=== PATIENT | male | born 1985 | race Caucasian/White ===

== ENCOUNTER 2018-03-19 03:30 | Observation (INO) | payer BC ==
[2018-03-19] MEDS ORDERED: SODIUM CHLORIDE 0.9% 1,000 ML IV STA (03:34)
[2018-03-19] MEDS ORDERED: ASPIRIN 81 MG PO STA (03:34)
[2018-03-19] MEDS ORDERED: NITROGLYCERIN OINT 1 INCH/GM PACKET TOPICAL STA (03:34)
--- NOTE | 2018-03-19 03:37 | ED ---
General Adult HPI - General Stated complaint: Chest Pain Time Seen by Provider: 03/19/18 03:31 Source: patient, RN notes reviewed Limitations: no limitations - History of Present Illness Initial comments: Patient is a pleasant 33-year-old male presenting to the emergency department with complaints of chest discomfort. Onset was around 4 hours ago. Discomfort has mostly resolved at this point. Patient has a difficult time describing the type of discomfort he experienced. Discomfort was left chest and extended to the left arm. Patient did have associated dyspnea. Patient was sweaty. Patient was somewhat upset at onset. Patient has had several similar symptoms over the past few weeks. Patient has seen lining printer and is playing to have a stress test scheduled. Patient does admit to drinking some alcohol earlier tonight. - Related Data Previous Rx's Medication Instructions Recorded Hydrocodone/Acetaminophen [[place] 1 each PO Q6HR PRN #20 tab 07/29/16 5-325] Ondansetron Odt [Zofran ODT] 4 mg PO Q8HR PRN #10 tab 07/29/16 Tamsulosin [Flomax] 0.4 mg PO DAILY #14 cap 07/29/16 Allergies Allergy/AdvReac Type Severity Reaction Status Date / Time amoxicillin Allergy Unknown Verified 03/19/18 03:39 Review of Systems ROS Statement: Those systems with pertinent positive or pertinent negative responses have been documented in the HPI. ROS Other: All systems not noted in ROS Statement are negative. Constitutional: Denies: fever Eyes: Denies: eye pain ENT: Denies: ear pain Respiratory: Reports: dyspnea. Denies: cough Cardiovascular: Reports: chest pain Endocrine: Denies: heat or cold intolerance Gastrointestinal: Denies: abdominal pain, nausea Genitourinary: Denies: dysuria Musculoskeletal: Denies: back pain Skin: Denies: rash Neurological: Denies: weakness Past Medical History Past Medical History: No Reported History History of Any Multi-Drug Resistant Organisms: None Reported Past Surgical History: No Surgical Hx Reported Past Psychological History: No Psychological Hx Reported Smoking Status: Never smoker Past Alcohol Use History: None Reported Past Drug Use History: None Reported General Exam Limitations: no limitations General appearance: alert, in no apparent distress Head exam: Present: atraumatic Eye exam: Present: normal appearance, PERRL ENT exam: Present: normal oropharynx Neck exam: Present: normal inspection Respiratory exam: Present: normal lung sounds bilaterally. Absent: chest wall tenderness Cardiovascular Exam: Present: regular rate, normal rhythm Expanded Peripheral pulses: 2+: Radial (R), Radial (L), Posterior Tibialis (R), Posterior Tibialis (L) GI/Abdominal exam: Present: soft. Absent: tenderness Extremities exam: Present: normal inspection. Absent: pedal edema, calf tenderness Neurological exam: Present: alert Psychiatric exam: Present: normal affect, normal mood Skin exam: Present: normal color Course Vital Signs 03/19/18 03:35 Temperature 98.2 F Pulse Rate 78 Respiratory 16 Rate Blood Pressure 121/59 O2 Sat by Pulse 98 Oximetry EKG Findings - EKG Comments: EKG Findings:: Normal sinus rhythm 77. DC 156. QRS 82. QT 360. QTC 47. Normal axis. Normal QRS. No acute ST change. Medical Decision Making - Medical Decision Making Patient reevaluated and resting comfortably in bed. No discomfort at this time. Patient family updated on results and plan. Case was discussed with practitioner Delgado, covering for Dr. Diggs, who will admit for hospital call. - Lab Data Result diagrams: 03/19/18 03:34 03/19/18 03:34 Lab Results 03/19/18 03/19/18 03/19/18 Range/Units 03:34 03:34 03:34 WBC 11.9 H (3.8-10.6) k/uL RBC 4.72 (4.30-5.90) m/uL Hgb 14.6 (13.0-17.5) gm/dL Hct 42.9 (39.0-53.0) % MCV 90.8 (80.0-100.0) fL MCH 30.9 (25.0-35.0) pg MCHC 34.0 (31.0-37.0) g/dL RDW 12.3 (11.5-15.5) % Plt Count 219 (150-450) k/uL Neutrophils % 84 % Lymphocytes % 10 % Monocytes % 4 % Eosinophils % 1 % Basophils % 0 % Neutrophils # 10.0 H (1.3-7.7) k/uL Lymphocytes # 1.2 (1.0-4.8) k/uL Monocytes # 0.5 (0-1.0) k/uL Eosinophils # 0.1 (0-0.7) k/uL Basophils # 0.0 (0-0.2) k/uL PT (9.0-12.0) sec INR (<1.2) APTT (22.0-30.0) sec D-Dimer (<0.60) mg/L FEU Sodium 146 H (137-145) mmol/L Potassium 4.1 (3.5-5.1) mmol/L Chloride 108 H (98-107) mmol/L Carbon Dioxide 21 L (22-30) mmol/L Anion Gap 17 mmol/L BUN 12 (9-20) mg/dL Creatinine 0.70 (0.66-1.25) mg/dL Est GFR (CKD-EPI)AfAm >90 (>60 ml/min/1.73 sqM) Est GFR (CKD-EPI)NonAf >90 (>60 ml/min/1.73 sqM) Glucose 107 H (74-99) mg/dL Calcium 8.9 (8.4-10.2) mg/dL Magnesium 2.0 (1.6-2.3) mg/dL Total Bilirubin 0.8 (0.2-1.3) mg/dL AST 23 (17-59) U/L ALT 37 (21-72) U/L Alkaline Phosphatase 73 (38-126) U/L Total Creatine Kinase 65 (55-170) U/L CK-MB (CK-2) 0.2 (0.0-2.4) ng/mL CK-MB (CK-2) Rel Index 0.3 Troponin I <0.012 (0.000-0.034) ng/mL Total Protein 6.4 (6.3-8.2) g/dL Albumin 4.3 (3.5-5.0) g/dL 03/19/18 Range/Units 03:34 WBC (3.8-10.6) k/uL RBC (4.30-5.90) m/uL Hgb (13.0-17.5) gm/dL Hct (39.0-53.0) % MCV (80.0-100.0) fL MCH (25.0-35.0) pg MCHC (31.0-37.0) g/dL RDW (11.5-15.5) % Plt Count (150-450) k/uL Neutrophils % % Lymphocytes % % Monocytes % % Eosinophils % % Basophils % % Neutrophils # (1.3-7.7) k/uL Lymphocytes # (1.0-4.8) k/uL Monocytes # (0-1.0) k/uL Eosinophils # (0-0.7) k/uL Basophils # (0-0.2) k/uL PT 11.0 (9.0-12.0) sec INR 1.1 (<1.2) APTT 26.2 (22.0-30.0) sec D-Dimer <0.17 (<0.60) mg/L FEU Sodium (137-145) mmol/L Potassium (3.5-5.1) mmol/L Chloride (98-107) mmol/L Carbon Dioxide (22-30) mmol/L Anion Gap mmol/L BUN (9-20) mg/dL Creatinine (0.66-1.25) mg/dL Est GFR (CKD-EPI)AfAm (>60 ml/min/1.73 sqM) Est GFR (CKD-EPI)NonAf (>60 ml/min/1.73 sqM) Glucose (74-99) mg/dL Calcium (8.4-10.2) mg/dL Magnesium (1.6-2.3) mg/dL Total Bilirubin (0.2-1.3) mg/dL AST (17-59) U/L ALT (21-72) U/L Alkaline Phosphatase (38-126) U/L Total Creatine Kinase (55-170) U/L CK-MB (CK-2) (0.0-2.4) ng/mL CK-MB (CK-2) Rel Index Troponin I (0.000-0.034) ng/mL Total Protein (6.3-8.2) g/dL Albumin (3.5-5.0) g/dL - Radiology Data Radiology results: image reviewed (Chest x-ray shows no acute process) Disposition Clinical Impression: Chest pain Disposition: ADMITTED IP TO THIS [facility] Is patient prescribed a controlled substance at d/c from ED?: No Referrals: None,Stated [Primary Care Provider] - 1-2 days Decision Time: 05:17
[2018-03-19 03:47] LABS: Basophils % (A) 0 %; Eosinophils # (A) 0.1 k/uL (0-0.7); Eosinophils % (A) 1 %; HCT 42.9 % (39.0-53.0); HGB 14.6 gm/dL (13.0-17.5); Lymphocytes # (A) 1.2 k/uL (1.0-4.8); Lymphocytes % (A) 10 %; MCH 30.9 pg (25.0-35.0); MCV 90.8 fL (80.0-100.0); Mean Platelet Volume 7.6; Monocytes # (A) 0.5 k/uL (0-1.0); Monocytes % (A) 4 %; Neutrophils % (A) 84 %; Platelet Count 219 k/uL (150-450); RBC 4.72 m/uL (4.30-5.90); RDW 12.3 % (11.5-15.5); WBC 11.9 k/uL (3.8-10.6)
[2018-03-19 04:08] LABS: ALT 37 U/L (21-72); AST 23 U/L (17-59); Albumin 4.3 g/dL (3.5-5.0); Alkaline Phosphatase 73 U/L (38-126); Anion Gap 17 mmol/L; Blood Urea Nitrogen 12 mg/dL (9-20); Calcium 8.9 mg/dL (8.4-10.2); Carbon Dioxide 21 mmol/L (22-30); Chloride 108 mmol/L (98-107); D-Dimer <0.17 mg/L FEU (<0.60); Glucose 107 mg/dL (74-99); INR 1.1 (<1.2); Partial Thromboplastin Time 26.2 sec (22.0-30.0); Potassium 4.1 mmol/L (3.5-5.1); Sodium 146 mmol/L (137-145); Total Bilirubin 0.8 mg/dL (0.2-1.3); Total Protein 6.4 g/dL (6.3-8.2)
--- NOTE | 2018-03-19 04:09 | XR ---
EXAM: XR Chest, 2 Views CLINICAL HISTORY: ITS.REASON XR Reason: Chest Pain TECHNIQUE: Frontal and lateral views of the chest. COMPARISON: No relevant prior studies available. FINDINGS: Lungs: Unremarkable. No consolidation. Pleural space: Unremarkable. No pneumothorax. Heart: Unremarkable. No cardiomegaly. Mediastinum: Unremarkable. Bones/joints: Unremarkable. IMPRESSION: Normal chest x-rays.
[2018-03-19 04:11] LABS: Creatine Kinase 65 U/L (55-170)
[2018-03-19 04:24] LABS: Creatine Kinase MB 0.2 ng/mL (0.0-2.4); Troponin I <0.012 ng/mL (0.000-0.034)
[2018-03-19] MEDS ORDERED: NITROGLYCERIN SL TABS 0.4 MG TAB SUBLINGUAL PRN (05:17)
[2018-03-19] MEDS ORDERED: NITROGLYCERIN OINT 1 INCH/GM PACKET TOPICAL SCH (06:00)
[2018-03-19 07:02] VITALS: BMI 27.6
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
--- NOTE | 2018-03-19 09:17 | US ---
EXAMINATION TYPE: US gallbladder DATE OF EXAM: 03/19/2018 COMPARISON: NONE CLINICAL HISTORY: chest pain. Nausea. Difficult exam due to overlying bowel gas EXAM MEASUREMENTS: Liver Length: 13.3 cm Gallbladder Wall: 0.2 cm CBD: 0.4 cm Right Kidney: 10.5 x 5.9 x 5.2 cm Pancreas: Obscured by bowel gas Liver: wnl Gallbladder: wnl Evidence for sonographic Handley's sign: No CBD: wnl Right Kidney: No hydronephrosis or masses seen IMPRESSION: No acute process.
[2018-03-19 10:23] LABS: Creatine Kinase 58 U/L (55-170)
[2018-03-19 10:35] LABS: Creatine Kinase MB <0.2 ng/mL (0.0-2.4); Troponin I <0.012 ng/mL (0.000-0.034)
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
[2018-03-19 15:45] LABS: Creatine Kinase 82 U/L (55-170)
[2018-03-19 15:58] LABS: Creatine Kinase MB 0.3 ng/mL (0.0-2.4); Troponin I <0.012 ng/mL (0.000-0.034)
[2018-03-19] MEDS ORDERED: ACETAMINOPHEN TAB 325 MG TAB PO PRN (19:26)
[2018-03-20 04:52] VITALS: RESP 18
[2018-03-20 07:44] VITALS: PULSE 61
[2018-03-20 08:35] LABS: Basophils % (A) 1 %; Eosinophils # (A) 0.2 k/uL (0-0.7); Eosinophils % (A) 5 %; HCT 45.6 % (39.0-53.0); HGB 15.1 gm/dL (13.0-17.5); Lymphocytes # (A) 1.6 k/uL (1.0-4.8); Lymphocytes % (A) 36 %; MCH 30.7 pg (25.0-35.0); MCHC 33.1 g/dL (31.0-37.0); MCV 92.7 fL (80.0-100.0); Mean Platelet Volume 7.5; Monocytes # (A) 0.2 k/uL (0-1.0); Monocytes % (A) 5 %; Neutrophils # (A) 2.4 k/uL (1.3-7.7); Neutrophils % (A) 52 %; Platelet Count 193 k/uL (150-450); RBC 4.91 m/uL (4.30-5.90); RDW 12.4 % (11.5-15.5); WBC 4.6 k/uL (3.8-10.6)
[2018-03-20 08:45] LABS: Anion Gap 12 mmol/L; Blood Urea Nitrogen 14 mg/dL (9-20); Calcium 8.8 mg/dL (8.4-10.2); Carbon Dioxide 25 mmol/L (22-30); Chloride 106 mmol/L (98-107); Cholesterol 142 mg/dL (<200); Glucose 90 mg/dL (74-99); HDL Cholesterol 27 mg/dL (40-60); LDL Cholesterol,Calculated 88 mg/dL (0-99); Potassium 4.5 mmol/L (3.5-5.1); Sodium 143 mmol/L (137-145); Triglycerides 133 mg/dL (<150)
[2018-03-20] MEDS ORDERED: ASPIRIN 81 MG PO SCH (09:00)
[2018-03-20] MEDS ORDERED: ASPIRIN 325 MG TAB PO SCH (09:00)
--- NOTE | 2018-03-20 09:52 | ECHOF ---
Referral Reason: MEASUREMENTS -------- HEIGHT: 167.6 cm WEIGHT: 77.6 kg BP: 104/60 RVIDd: 2.7 cm (< 3.3) IVSd: 0.9 cm (0.6 - 1.1) LVIDd: 4.0 cm (3.9 - 5.3) LVPWd: 1.2 cm (0.6 - 1.1) IVSs: 1.3 cm LVIDs: 2.4 cm LVPWs: 1.7 cm LAESV Index (A-L): 22.06 ml/m Ao Diam: 3.0 cm (2.0 - 3.7) AV Cusp: 1.9 cm (1.5 - 2.6) LA Diam: 2.8 cm (2.7 - 3.8) MV EXCURSION: 19.740 mm (> 18.000) MV EF SLOPE: 119 mm/s (70 - 150) EPSS: 0.5 cm MV E Gennaro: 0.87 m/s MV DecT: 200 ms MV A Gennaro: 0.57 m/s MV E/A Ratio: 1.52 RAP: 5.00 mmHg RVSP: 23.42 mmHg FINDINGS -------- Sinus rhythm. This was a technically good study. The left ventricular size is normal. There is mild concentric left ventricular hypertrophy. Overa ll left ventricular systolic function is low-normal with, an EF between 50 - 55 %. The right ventricle is normal in size. The left atrium is normal in size. The right atrium is normal in size. The aortic valve is trileaflet and appears structurally normal. There is trace mitral regurgitation. Mild tricuspid regurgitation present. The right ventricular systolic pressure, as measured by Doppl er, is 23.42mmHg. Pulmonic valve appears structurally normal. The aortic root size is normal. Normal inferior vena cava with normal inspiratory collapse consistent with estimated right atrial pre ssure of 5 mmHg. The pericardium is normal. CONCLUSIONS -------- 1. Sinus rhythm. 2. This was a technically good study. 3. The left ventricular size is normal. 4. There is mild concentric left ventricular hypertrophy. 5. Overall left ventricular systolic function is low-normal with, an EF between 50 - 55 %. 6. The right ventricle is normal in size. 7. The left atrium is normal in size. 8. The right atrium is normal in size. 9. The aortic valve is trileaflet and appears structurally normal. 10. There is trace mitral regurgitation. 11. Mild tricuspid regurgitation present. 12. The right ventricular systolic pressure, as measured by Doppler, is 23.42mmHg. 13. Pulmonic valve appears structurally normal. 14. The aortic root size is normal. 15. Normal inferior vena cava with normal inspiratory collapse consistent with estimated right atrial pressure of 5 mmHg. 16. The pericardium is normal. TELEGRAPHIC TYPEWRITER MECHANIC: Maria Teresa Gonzalez RDCS
[2018-03-20 11:27] VITALS: BP 116/59; TEMP 98.3
--- NOTE | 2018-03-20 12:22 | P.STRESS ---
- Stress Test Note Stress Test Results/Findings: Exam Performed: Exam Date: Reason for Exam: Height: 5 ft 6 in Weight: 77.564 kg Protocol: Stage: Duration of Exercise: Resting Heart Rate: Resting Blood Pressure: Maximum Achieved Heart Rate: Maximum Achieved Blood Pressure: 85% PMHR: 100% PMHR: METS: Technologist Comment: Stress Test Results/Findings: This is a 33-year-old gentleman with history of smoking who was admitted to the hospital with chest pain or shortness of breath. Stress data Baseline EKG showed sinus rhythm with normal ID interval and QRS duration. Blood pressure at rest is 106/54 with pulse rate of 73. Patient walked on the Anthony protocol for 10-1/2 minutes achieving a maximum heart rate of 173 with a blood pressure of 154/65. EKGs taken during and after exercise did not reveal any changes to suggest ischemia. Patient did not experience any chest pain. Final impression: #1. Negative stress test #2. Excellent exercise capacity # 3. Patient did not experience any chest pain. #4. No arrhythmias are noted
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
--- NOTE | 2018-03-21 16:32 | ECHOS ---
Stress Test Results/Findings: Exam Performed: Stress Echo Exam Date: 03/20/18 Reason for Exam: Chest Pain Height: 5 ft 6 in Weight: 77.564 kg Protocol: Anthony Stage: 4 Duration of Exercise: 10:30 Resting Heart Rate: 73 Resting Blood Pressure: 106/54 Maximum Achieved Heart Rate: 173 Maximum Achieved Blood Pressure: 187/63 85% PMHR: 161 100% PMHR: 189 METS: 12.1 Technologist Comment: Stress Test Results/Findings: This is a 33-year-old gentleman with history of smoking who was admitted to the hospital with chest pain or shortness of breath. Stress data Baseline EKG showed sinus rhythm with normal [place] interval and QRS duration. Blood pressure at rest is 106/54 with pulse rate of 73. Patient walked on the Anthony protocol for 10-1/2 minutes achieving a maximum heart rate of 173 with a blood pressure of 154/65. EKGs taken during and after exercise did not reveal any changes to suggest ischemia. Patient did not experience any chest pain. Final impression: #1. Negative stress test #2. Excellent exercise capacity # 3. Patient did not experience any chest pain. #4. No arrhythmias are noted MTDD
== END 2018-03-20 15:00 | disposition home or self-care (01) ==
LOC: EC 03:30 → 3OBS 05:18
PROVIDERS: ADMIT Internal Medicine; ATTEND Internal Medicine
DX: R07.89 Other chest pain (principal); F10.129 Alcohol abuse with intoxication, unspecified; E86.0 Dehydration; E87.0 Hyperosmolality and hypernatremia; D72.829 Elevated white blood cell count, unspecified; F17.200 Nicotine dependence, unspecified, uncomplicated; Z88.0 Allergy status to penicillin; Z79.899 Other long term (current) drug therapy
CPT/HCPCS: 99285 ×2; 36415; 94760; 93005; 93306; 93351; 85379; 80061; 80053; 80048; 82550; 82553; 83735; 84484; 85025 ×2; 85610; 85730; 71046; 76705; G0378 ×2

== ENCOUNTER 2020-07-08 03:31 | Emergency (ER) | payer BC ==
[2020-07-08 03:43] VITALS: RESP 18
[2020-07-08] MEDS ORDERED: SODIUM CHLORIDE 0.9% 1,000 ML IV STA (03:53)
[2020-07-08] MEDS ORDERED: KETOROLAC 15 MG/ML 1 ML VIAL IVP STA (03:53)
[2020-07-08] MEDS ORDERED: HYDROmorphone 0.5 MG/0.5 ML SYRINGE IVP STA (03:53)
[2020-07-08] MEDS ORDERED: ONDANSETRON 4 MG/2 ML VIAL IVP STA (03:54)
--- NOTE | 2020-07-08 04:04 | ED ---
General Adult HPI - General Chief complaint: Urogenital Stated complaint: Kidney Stone Time Seen by Provider: 07/08/20 03:52 Source: patient, family Mode of arrival: ambulatory Limitations: no limitations - History of Present Illness Initial comments: Genaro toth 35-year-old male who presents the ER today for evaluation of severe right flank pain. Patient reports the pain began in the evening, was similar to previous episodes of kidney stones and when he got home he took some Motrin and Flomax. Patient reports the pain is radiated from the right flank down into the right groin is associated with nausea, vomiting and hematuria as well as urinary frequency. Patient reports that he hasn't had a stone about 4 years but this is much worse than he remembers. - Related Data Home Medications Medication Instructions Recorded Confirmed Multivitamins, Thera [Multivitamin 1 tab PO DAILY 03/19/18 03/19/18 (formulary)] Previous Rx's Medication Instructions Recorded Tamsulosin [Flomax] 0.4 mg PO DAILY #7 cap 07/08/20 Allergies Allergy/AdvReac Type Severity Reaction Status Date / Time amoxicillin Allergy Unknown Verified 07/08/20 03:44 Review of Systems ROS Statement: Those systems with pertinent positive or pertinent negative responses have been documented in the HPI. ROS Other: All systems not noted in ROS Statement are negative. Past Medical History Past Medical History: No Reported History History of Any Multi-Drug Resistant Organisms: None Reported Past Surgical History: No Surgical Hx Reported Additional Past Surgical History / Comment(s): vasectomy Past Anesthesia/Blood Transfusion Reactions: No Reported Reaction Past Psychological History: No Psychological Hx Reported Smoking Status: Current every day smoker Past Alcohol Use History: Occasional Past Drug Use History: Marijuana General Exam - General Exam Comments Initial Comments: Physical Exam GENERAL: acute distress secondary to pain HENT: Normocephalic, Atraumatic. EYES: PERRL, EOMI PULMONARY: Unlabored respirations. CARDIOVASCULAR: RRR Warm and well perfused extremities ABDOMEN: Non-distended Right-sided flank pain to percussion SKIN: No rashes or bruising : Deferred NEUROLOGIC: Alert and oriented Normal speech Normal gait MUSCULOSKELETAL: Moving all extremities with no apparent injury PSYCHIATRIC: No SI/HI Limitations: no limitations Course Vital Signs 07/08/20 03:37 Temperature 98 F Pulse Rate 68 Respiratory 18 Rate Blood Pressure 145/88 O2 Sat by Pulse 100 Oximetry Medical Decision Making - Medical Decision Making The patient was seen and evaluated history is obtained from the patient and signed patient is in acute distress secondary to pain, he is diaphoretic nauseated and heaving Labs, imaging were ordered IV fluids, Zofran, Toradol and Dilaudid were ordered for treatment Xray show no acute findings however urinalysis has gross hematuria Scan was obtained and revealed a tiny obstructing stone at the UVJ Patient had significant improvement in his pain after Toradol and Dilaudid, no further nausea or vomiting reports feeling much better and is comfortable with the plan for discharge home - Lab Data Result diagrams: 07/08/20 04:02 07/08/20 04:02 Lab Results 07/08/20 07/08/20 07/08/20 Range/Units 04:02 04:02 04:02 WBC 15.1 H (3.8-10.6) k/uL RBC 4.96 (4.30-5.90) m/uL Hgb 15.1 (13.0-17.5) gm/dL Hct 47.1 (39.0-53.0) % MCV 94.9 (80.0-100.0) fL MCH 30.4 (25.0-35.0) pg MCHC 32.0 (31.0-37.0) g/dL RDW 12.0 (11.5-15.5) % Plt Count 251 (150-450) k/uL Neutrophils % 78 % Lymphocytes % 13 % Monocytes % 5 % Eosinophils % 2 % Basophils % 1 % Neutrophils # 11.8 H (1.3-7.7) k/uL Lymphocytes # 2.0 (1.0-4.8) k/uL Monocytes # 0.8 (0-1.0) k/uL Eosinophils # 0.3 (0-0.7) k/uL Basophils # 0.1 (0-0.2) k/uL Sodium 138 (137-145) mmol/L Potassium 4.2 (3.5-5.1) mmol/L Chloride 101 (98-107) mmol/L Carbon Dioxide 28 (22-30) mmol/L Anion Gap 9 mmol/L BUN 16 (9-20) mg/dL Creatinine 0.95 (0.66-1.25) mg/dL Est GFR (CKD-EPI)AfAm >90 (>60 ml/min/1.73 sqM) Est GFR (CKD-EPI)NonAf >90 (>60 ml/min/1.73 sqM) Glucose 133 H (74-99) mg/dL Calcium 9.5 (8.4-10.2) mg/dL Urine Color Light Red Urine Appearance Cloudy (Clear) Urine pH 5.5 (5.0-8.0) Ur Specific [place] 1.030 (1.001-1.035) Urine Protein 1+ H (Negative) Urine Glucose (UA) Negative (Negative) Urine Ketones Trace H (Negative) Urine Blood Large H (Negative) Urine Nitrite Negative (Negative) Urine Bilirubin Negative (Negative) Urine Urobilinogen 2.0 (<2.0) mg/dL Ur Leukocyte Esterase Negative (Negative) Urine RBC >182 H (0-5) /hpf Urine WBC 9 H (0-5) /hpf Ur Squamous Epith Cells 1 (0-4) /hpf Urine Mucus Many H (None) /hpf Disposition Clinical Impression: Kidney stone on right side Disposition: HOME SELF-CARE Condition: Stable Additional Instructions: As we discussed you have a tiny kidney stone which has already traveled to the bladder, it is still causing a small amount of blockage but should pass Take Tylenol #3 and Zofran as needed, take flomax daily to aid in stone passing Return to the ER if you have any worsening pain or new or concerning symptoms Prescriptions: Tamsulosin [Flomax] 0.4 mg PO DAILY #7 cap Is patient prescribed a controlled substance at d/c from ED?: No Referrals: None,Stated [Primary Care Provider] - 1-2 days
[2020-07-08 04:12] LABS: Basophils # (A) 0.1 k/uL (0-0.2); Basophils % (A) 1 %; Eosinophils # (A) 0.3 k/uL (0-0.7); Eosinophils % (A) 2 %; HCT 47.1 % (39.0-53.0); HGB 15.1 gm/dL (13.0-17.5); Lymphocytes % (A) 13 %; MCH 30.4 pg (25.0-35.0); MCV 94.9 fL (80.0-100.0); Mean Platelet Volume 7.8; Monocytes # (A) 0.8 k/uL (0-1.0); Monocytes % (A) 5 %; Neutrophils # (A) 11.8 k/uL (1.3-7.7); Neutrophils % (A) 78 %; Platelet Count 251 k/uL (150-450); RBC 4.96 m/uL (4.30-5.90); WBC 15.1 k/uL (3.8-10.6)
[2020-07-08 04:24] LABS: Appearance,Urine Cloudy (Clear); Bilirubin,Urine Negative (Negative); Blood,Urine Large (Negative); Color,Urine Light Red; Glucose,Urine (UA) Negative (Negative); Ketones,Urine Trace (Negative); Leukocyte Esterase,Urine Negative (Negative); Mucus,Urine Many /hpf; Nitrite,Urine Negative (Negative); PH, Urine 5.5 (5.0-8.0); Protein,Urine 1+ (Negative); RBC,Urine >182 /hpf (0-5); Squamous Epithelial Cell,Urine 1 /hpf (0-4); WBC,Urine 9 /hpf (0-5)
[2020-07-08 04:28] LABS: African American GFR (CKD) >90 (>60 ml/min/1.73 sqM); Anion Gap 9 mmol/L; Blood Urea Nitrogen 16 mg/dL (9-20); Calcium 9.5 mg/dL (8.4-10.2); Carbon Dioxide 28 mmol/L (22-30); Chloride 101 mmol/L (98-107); Glucose 133 mg/dL (74-99); Non-African American GFR(CKD) >90 (>60 ml/min/1.73 sqM); Potassium 4.2 mmol/L (3.5-5.1); Sodium 138 mmol/L (137-145)
--- NOTE | 2020-07-08 04:32 | XR ---
EXAMINATION TYPE: XR KUB portable DATE OF EXAM: 07/08/2020 COMPARISON: 07/29/2016 HISTORY: Right flank pain TECHNIQUE: 2 views upright FINDINGS: There is no sign of intestinal obstruction or pneumoperitoneum. Fecal pattern is normal. I see no pathologic calcifications over the kidneys. IMPRESSION: Nonacute abdomen. No change.
--- NOTE | 2020-07-08 05:10 | CT ---
EXAMINATION TYPE: CT abdomen pelvis w con DATE OF EXAM: 07/08/2020 COMPARISON: 04/22/2009 HISTORY: pain CT DLP: 736.6 mGycm Automated exposure control for dose reduction was used. CONTRAST: Performed with IV Contrast, patient injected with 100 mL of Isovue 300. The lung bases are clear. There is no pleural effusion. Heart size is normal. There is no pericardial effusion. Liver spleen pancreas gallbladder stomach appear normal. Bile ducts are not dilated. There is no adrenal mass. Kidneys show normal size and contour. There is a delayed right side pyelogr am. There is right-sided hydronephrosis and hydroureter. There is 2 mm calculus at the right ureterov esical junction. The bladder is almost empty. There is no retroperitoneal adenopathy. There is no mesenteric edema. There is no ascites or free air . There is no bowel obstruction. Appendix is medial and appears normal. Bony pelvis is intact. Hip joints are intact. Lumbar spine is intact. IMPRESSION: Right-sided hydronephrosis and hydroureter with tiny obstructing calculus at the right ureterovesical junction. Normal appendix.
[2020-07-08] MEDS ORDERED: ACET/COD 300 MG/30 MG STARTER PACK 6 TAB BTL PO STA (05:13)
[2020-07-08] MEDS ORDERED: ONDANSETRON 4 MG ODT STARTER PACK 2 TAB BTL PO STA (05:14)
[2020-07-08 05:38] VITALS: BP 135/85; PULSE 80; TEMP 98.7
== END 2020-07-08 05:38 | disposition home or self-care (01) ==
LOC: EC 03:31
DX: N13.2 Hydronephrosis with renal and ureteral calculous obstruction (principal); F17.200 Nicotine dependence, unspecified, uncomplicated; Z88.0 Allergy status to penicillin
CPT/HCPCS: 36415; 80048; 85025; 81001; 74018; 74177; 99284; 96374; 96375 ×2; 96361; J2405; J1885; S0119; J1170; Q9967

== ENCOUNTER 2023-05-24 12:42 | Emergency (ER) | payer BC, OTHER ==
[2023-05-24 12:50] VITALS: RESP 16
[2023-05-24] MEDS ORDERED: HYDROmorphone 1 MG/ML 1 ML SYRINGE IM STA (13:05)
[2023-05-24] MEDS ORDERED: KETOROLAC 15 MG/ML 1 ML VIAL IM STA (13:05)
[2023-05-24] MEDS ORDERED: DIPH,PERTUS(ACELL)TETVAC-LF 0.5 ML VIAL IM ONE (13:06)
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
[2023-05-24] MEDS ORDERED: BACITRACIN OINT 1 EACH PACKET TOPICAL ONE (14:20)
[2023-05-24] MEDS ORDERED: ACET/COD 300 MG/30 MG STARTER PACK 6 TAB BTL PO STA (14:40)
[2023-05-24 15:21] VITALS: BP 115/76; PULSE 82; TEMP 97.9
== END 2023-05-24 16:10 | disposition home or self-care (01) ==
LOC: EC 12:42
DX: T21.24XA Burn of second degree of lower back, initial encounter (principal); T23.102A Burn of first degree of left hand, unspecified site, initial encounter; F12.90 Cannabis use, unspecified, uncomplicated; F17.200 Nicotine dependence, unspecified, uncomplicated; Z23 Encounter for immunization; Z88.0 Allergy status to penicillin; X12.XXXA Contact with other hot fluids, initial encounter
CPT/HCPCS: 90715; 99283; 90471; 96372 ×2; J1170; J1885

== ENCOUNTER 2025-04-16 19:41 | Emergency (ER) | payer BC ==
[2025-04-16 19:48] VITALS: PULSE 79; RESP 16
--- NOTE | 2025-04-16 20:08 | ED ---
Wound/Laceration HPI - General Chief Complaint: Wound/Laceration Stated Complaint: leg injury Time Seen by Provider: 04/16/25 19:57 Source: patient, EMS, RN notes reviewed Mode of arrival: EMS Limitations: no limitations - History of Present Illness Initial Comments: This is a 40-year-old male presenting for left knee laceration/pain (03/19) x 30 minutes ago. Patient states his chainsaw was rubbing down when it accidentally cut into his left leg. Endorses a burning sensation and numbness sensation in his toes. States tetanus was last received in 2022. Denies any other significant injury. Onset/Timin -: minutes(s) Extremity Location: Left: Thigh Place: outdoors Patient Tetanus UTD: Yes Context: accidental Associated Symptoms: pain Treatments Prior to Arrival: bandage - Related Data Home Medications Medication Instructions Recorded Confirmed Multivitamins, Thera [Multivitamin 1 tab PO DAILY 03/19/18 03/19/18 (formulary)] Previous Rx's Medication Instructions Recorded Tamsulosin [Flomax] 0.4 mg PO DAILY #7 cap 07/08/20 Ibuprofen [Motrin] 600 mg PO Q6HR PRN #20 tab 05/24/23 Bacitracin/Polymyx Oint 1 applic TOPICAL BID #30 gm 04/16/25 [Polysporin Oint] clindamycin HCL 300 mg PO QID #12 cap 04/16/25 Allergies Allergy/AdvReac Type Severity Reaction Status Date / Time amoxicillin Allergy Unknown Verified 07/08/20 03:44 Review of Systems ROS Statement: Those systems with pertinent positive or pertinent negative responses have been documented in the HPI. ROS Other: All systems not noted in ROS Statement are negative. Past Medical History Past Medical History: No Reported History History of Any Multi-Drug Resistant Organisms: None Reported Past Surgical History: No Surgical Hx Reported Additional Past Surgical History / Comment(s): vasectomy, C5 fusion Past Anesthesia/Blood Transfusion Reactions: No Reported Reaction Past Psychological History: No Psychological Hx Reported Smoking Status: Current every day smoker Past Alcohol Use History: Rare Past Drug Use History: Marijuana General Exam Limitations: no limitations General appearance: alert, in no apparent distress Head exam: Present: atraumatic, normocephalic, normal inspection Eye exam: Present: normal appearance, PERRL, EOMI. Absent: scleral icterus, conjunctival injection, periorbital swelling ENT exam: Present: normal exam, mucous membranes moist Neck exam: Present: normal inspection. Absent: tenderness, meningismus, lymphadenopathy Respiratory exam: Present: normal lung sounds bilaterally. Absent: respiratory distress, wheezes, rales, rhonchi, stridor Cardiovascular Exam: Present: regular rate, normal rhythm, normal heart sounds. Absent: systolic murmur, diastolic murmur, rubs, gallop, clicks GI/Abdominal exam: Present: soft, normal bowel sounds. Absent: distended, tenderness, guarding, rebound, rigid Extremities exam: Present: normal inspection, full ROM, normal capillary refill, other (7 cm horizontal laceration superior to left knee without damage to femur or tendons. Patient able to flex/extend left knee without difficulty. Distal neurovascular and motor function intact. Posterior tibialis pulse +2.). Absent: tenderness, pedal edema, joint swelling, calf tenderness Back exam: Present: normal inspection Neurological exam: Present: alert, oriented X3, CN II-XII intact Psychiatric exam: Present: normal affect, normal mood Skin exam: Present: warm, dry, intact, normal color. Absent: rash Course Vital Signs 04/16/25 04/16/25 19:46 21:12 Temperature 98.1 F 97.8 F Pulse Rate 79 79 Respiratory 16 16 Rate Blood Pressure 104/69 108/70 O2 Sat by Pulse 99 98 Oximetry Procedures - Laceration Laceration #1 Consent Obtained: verbal consent Indication: laceration Site: lower extremity Size (cm): 7 Description: linear Depth: simple, single layer Anesthetic Used: lidocaine 1% Anesthesia Technique: local infiltration Amount (mls): 9 Pre-repair: wound explored, irrigated extensively Type of Sutures: nylon Size of Sutures: 5-0 Number of Sutures: 10 Technique: running Patient Tolerated Procedure: well, no complications Additional Comments: Cover with 4 x 4 gauze and Kerlix roll Medical Decision Making - Medical Decision Making Was pt. sent in by a medical professional or institution (Dr. PA, TIMBER TREATING TANK OPERATOR, urgent care, hospital, or long term...) When possible be specific @ -No Did you speak to anyone other than the patient for history (EMS, parent, family, police, friend...)? What history was obtained from this source @ -No Did you review nursing and triage notes (agree or disagree)? Why? @ -I reviewed and agree with nursing and triage notes Were old charts reviewed (outside hosp., previous admission, EMS record, old EKG, old radiological studies, urgent care reports/EKG's, long term records)? Report findings @ -No old charts were reviewed Differential Diagnosis (chest pain, altered mental status, abdominal pain women, abdominal pain men, vaginal bleeding, weakness, fever, dyspnea, syncope, headache, dizziness, GI bleed, back pain, seizure, CVA, palpatations, mental health, musculoskeletal)? @ -Differential Musculoskeletal Muscular strain, contusion, ligament sprain, fracture, arthritis, septic arthritis, bursitis, cellulitis, muscle spasm, nerve compression, DVT, arterial occlusion, herpes zoster, electrolyte abnormality, tumor.... This is not meant to be in all inclusive list EKG interpreted by me (3pts min.). @ -Not done X-rays interpreted by me (1pt min.). @ -None done CT interpreted by me (1pt min.). @ -None done U/S interpreted by me (1pt. min.). @ -None done What testing was considered but not performed or refused? (CT, X-rays, U/S, labs)? Why? @ -None What meds were considered but not given or refused? Why? @ -None Did you discuss the management of the patient with other professionals (professionals i.e. , PA, TIMBER TREATING TANK OPERATOR, lab, RT, psych nurse, school social worker, medical health researcher, teacher, forest officer, rifle case repairer)? Give summary @ -No Was smoking cessation discussed for >3mins.? @ -No Was critical care preformed (if so, how long)? @ -No Were there social determinants of health that impacted care today? How? (Homelessness, low income, unemployed, alcoholism, drug addiction, transportation, low edu. Level, literacy, decrease access to med. care, [facility], rehab)? @ -No Was there de-escalation of care discussed even if they declined (Discuss DNR or withdrawal of care, Hospice)? DNR status @ -No What co-morbidities impacted this encounter? (DM, HTN, Smoking, COPD, CAD, Cancer, CVA, ARF, Chemo, Hep., AIDS, mental health diagnosis, sleep apnea, morbid obesity)? @ -None Was patient admitted / discharged? Hospital course, mention meds given and route, prescriptions, significant lab abnormalities, going to OR and other pertinent info. @ -Patient maintains FROM of [facility] with distal neurovascular and motor function intact. No obvious laceration extending to bone. Laceration sutured and patient provided p.o. clindamycin. Clindamycin and bacitracin ointment sent to patient's pharmacy. Sutured wound care instructions provided patient. Advised follow-up for suture removal in 10-14 days. Discussed patient with Dr. Ryan. Undiagnosed new problem with uncertain prognosis? @ -No Drug Therapy requiring intensive monitoring for toxicity (Heparin, Nitro, Insulin, Cardizem)? @ -No Were any procedures done? @ -Laceration sutured under sterile conditions. See procedure note Diagnosis/symptom? @ -Leg laceration Acute, or Chronic, or Acute on Chronic? @ -Acute Uncomplicated (without systemic symptoms) or Complicated (systemic symptoms)? @ -Uncomplicated Side effects of treatment? @ -No Exacerbation, Progression, or Severe Exacerbation? @ -No Poses a threat to life or bodily function? How? (Chest pain, [place], [place], pneumonia, PE, COPD, DKA, ARF, appy, cholecystitis, CVA, Diverticulitis, Homicidal, Suicidal, threat to staff... and all critical care pts) @ -No Disposition Clinical Impression: Laceration Disposition: HOME SELF-CARE Condition: Good Instructions (If sedation given, give patient instructions): Care For Your Stitches (ED) Additional Instructions: Keep sutures clean with antibacterial soap and water at least twice daily along with application of antibacterial ointment and dressing change. Follow-up with medical facility in 10-14 days for suture removal. Return to ER if experiencing fever or worsening localized redness, warmth, tenderness, discharge. Prescriptions: clindamycin HCL 300 mg PO QID #12 cap Bacitracin/Polymyx Oint [Polysporin Oint] 1 applic TOPICAL BID #30 gm Is patient prescribed a controlled substance at d/c from ED?: No Referrals: None,Stated [Primary Care Provider] - 1-2 days Eriberto Cruz MD [STAFF PHYSICIAN] - 1-2 days Time of Disposition: 20:46
[2025-04-16] MEDS: LIDOCAINE 1% INJ 10MG/ML (20 ML MDV) SQ ONE (20:27)
[2025-04-16] MEDS: CLINDAMYCIN 150 MG CAP PO STA (20:51)
[2025-04-16 21:20] VITALS: BP 108/70; TEMP 97.8
== END 2025-04-16 21:28 | disposition home or self-care (01) ==
LOC: EC 19:41
DX: S81.012A Laceration without foreign body, left knee, initial encounter (principal); F17.200 Nicotine dependence, unspecified, uncomplicated; Z88.0 Allergy status to penicillin; W29.3XXA Contact with powered garden and outdoor hand tools and machinery, initial encounter
CPT/HCPCS: 12002; 99283; J2003